=== PATIENT | male | born 1955 | race Asian ===

== ENCOUNTER 2018-04-11 11:38 | Emergency (ER) | payer OTHER ==
[2018-04-11] MEDS: ACETAMINOPHEN 500 MG TAB PO (13:16)
[2018-04-11 13:29] LABS: ABNORMAL IP MESSAGE 1; HEMATOCRIT 37.9 % (42.0-52.0); HEMOGLOBIN 12.5 g/dl (14.0-18.0); MEAN CORPUSCULAR HEMOGLOBIN 29.4 pg (29.0-33.0); MEAN CORPUSCULAR VOLUME 89.2 fl (82.0-101.0); MEAN PLATELET VOLUME 8.9 fl (7.4-10.4); PLATELET COUNT 318 10^3/UL (140-415); POSITIVE DIFF @See below; RED BLOOD COUNT 4.25 10^6/ul (4.70-6.10); RED CELL DISTRIBUTION WIDTH 13.3 % (11.5-14.5)
[2018-04-11 13:29] LABS: WHITE BLOOD COUNT 1.5 10^3/ul (4.8-10.8)
[2018-04-11 13:33] LABS: ADD UMIC NO; UR ASCORBIC ACID NEGATIVE (NEGATIVE); UR BILIRUBIN (Dip) NEGATIVE (NEGATIVE); UR BLOOD (Dip) NEGATIVE (NEGATIVE); UR CLARITY CLEAR (CLEAR); UR COLOR YELLOW (YELLOW); UR GLUCOSE (Dip) NEGATIVE (NEGATIVE); UR KETONES (Dip) NEGATIVE (NEGATIVE); UR LEUKOCYTE ESTERASE (Dip) NEGATIVE Leu/ul (NEGATIVE); UR NITRITE (Dip) NEGATIVE (NEGATIVE); UR SPECIFIC GRAVITY (Dip) 1.021 (1.003-1.030); UR TOTAL PROTEIN (Dip) NEGATIVE (NEGATIVE); UR UROBILINOGEN (Dip) NEGATIVE (NEGATIVE)
[2018-04-11 13:36] LABS: ADD MAN DIFF? YES
[2018-04-11 13:54] LABS: ALANINE AMINOTRANSFERASE 32 IU/L (13-69); ALBUMIN 5.1 g/dl (3.3-4.9); ALBUMIN/GLOBULIN RATIO 1.37; ALKALINE PHOSPHATASE 61 IU/L (42-121); ANION GAP 15 (8-16); ASPARTATE AMINO TRANSFERASE 20 IU/L (15-46); BILIRUBIN,INDIRECT 0.5 mg/dl (0-1.1); BILIRUBIN,TOTAL 0.5 mg/dl (0.2-1.3); BLOOD UREA NITROGEN 15 mg/dl (7-20); CALCIUM 9.6 mg/dl (8.4-10.2); CARBON DIOXIDE 24 mmol/L (21-31); CHLORIDE 106 mmol/L (97-110); CREATININE 0.75 mg/dl (0.61-1.24); GLUCOSE 112 mg/dl (70-220); SODIUM 141 mmol/L (135-144); TOTAL PROTEIN 8.8 g/dl (6.1-8.1)
[2018-04-11 14:11] LABS: ANISOCYTOSIS 1+ (0-0); BAND NEUTROPHILS % (M) 4 % (0-4); BASOPHILS % (M) 2 % (0-2); BURR CELLS 1+ (0-0); EOSINOPHILS % (M) 2 % (0-7); LYMPHOCYTES % (M) 67 % (15-51); METAMYELOCYTES %M 1 % (0-0); MONOCYTE #M 0.3 10^3/ul (0.3-0.9); MONOCYTES % (M) 21 % (0-11); OVALOCYTES 1+ (0-0); PLATELET ESTIMATE NORMAL; POIKILOCYTOSIS 1+ (0-0); POLYCHROMASIA 1+ (0-0); SEGMENTED NEUTROPHILS (M) % 3 % (39-77); SMUDGE%M 3 % (0-0)
== END 2018-04-11 14:43 | disposition home or self-care (01) ==
LOC: FTE 11:38
DX: L73.9 Follicular disorder, unspecified (principal); L08.9 Local infection of the skin and subcutaneous tissue, unspecified; I10 Essential (primary) hypertension; Z85.46 Personal history of malignant neoplasm of prostate
CPT/HCPCS: 36415; 76870; 80053; 81003; 85025; 87086; 87591; 99284-25

== ENCOUNTER 2018-05-17 20:53 | Emergency (ER) | payer OTHER ==
[2018-05-17] MEDS: LIDOCAINE 2% 20 ML UROJET SYRINGE MM (21:37)
[2018-05-17 22:12] LABS: ADD UMIC YES; UR ASCORBIC ACID NEGATIVE (NEGATIVE); UR BILIRUBIN (Dip) NEGATIVE (NEGATIVE); UR BLOOD (Dip) 1+ mg/dL (NEGATIVE); UR CLARITY CLEAR (CLEAR); UR COLOR STRAW (YELLOW); UR GLUCOSE (Dip) NEGATIVE (NEGATIVE); UR KETONES (Dip) NEGATIVE (NEGATIVE); UR LEUKOCYTE ESTERASE (Dip) NEGATIVE Leu/ul (NEGATIVE); UR NITRITE (Dip) NEGATIVE (NEGATIVE); UR RBC 0 /HPF (0-5); UR SPECIFIC GRAVITY (Dip) 1.006 (1.003-1.030); UR TOTAL PROTEIN (Dip) NEGATIVE (NEGATIVE); UR UROBILINOGEN (Dip) NEGATIVE (NEGATIVE); UR WBC 2 /HPF (0-5)
== END 2018-05-17 23:25 | disposition home or self-care (01) ==
LOC: E/R 20:53
DX: R33.9 Retention of urine, unspecified (principal); I10 Essential (primary) hypertension; C61 Malignant neoplasm of prostate
CPT/HCPCS: 51702; 81001; 87086; 99283-25

== ENCOUNTER 2018-05-24 14:22 | Emergency (ER) | payer SELFPAY, OTHER | END 2018-05-24 14:43 | disposition left against medical advice (07) | LOC: E/R 14:43 | DX: Z53.21 Procedure and treatment not carried out due to patient leaving prior to being seen by health care provider (principal) ==

== ENCOUNTER 2018-05-25 14:18 | Emergency (ER) | payer OTHER | END 2018-05-25 16:18 | disposition home or self-care (01) | LOC: FTE 14:18 | DX: Z46.6 Encounter for fitting and adjustment of urinary device (principal); Z85.46 Personal history of malignant neoplasm of prostate | CPT/HCPCS: 99282; Z7502 ==

== ENCOUNTER 2018-06-16 12:45 | Emergency (ER) | payer OTHER ==
[2018-06-16 14:03] LABS: ADD UMIC YES; UR ASCORBIC ACID NEGATIVE (NEGATIVE); UR BACTERIA MANY /HPF (NONE SEEN); UR BILIRUBIN (Dip) NEGATIVE (NEGATIVE); UR BLOOD (Dip) 3+ mg/dL (NEGATIVE); UR CLARITY TURBID (CLEAR); UR COLOR YELLOW (YELLOW); UR GLUCOSE (Dip) NEGATIVE (NEGATIVE); UR KETONES (Dip) NEGATIVE (NEGATIVE); UR LEUKOCYTE ESTERASE (Dip) 2+ Leu/ul (NEGATIVE); UR MUCUS MANY /HPF (NONE SEEN); UR NITRITE (Dip) POSITIVE (NEGATIVE); UR RBC > 182 /HPF (0-5); UR SPECIFIC GRAVITY (Dip) 1.018 (1.003-1.030); UR TOTAL PROTEIN (Dip) 2+ mg/dl (NEGATIVE); UR UROBILINOGEN (Dip) NEGATIVE (NEGATIVE); UR WBC > 182 /HPF (0-5)
[2018-06-16] MEDS: LIDOCAINE 1% (MDV) 10 ML INJ INJ (14:13)
[2018-06-16] MEDS: LIDOCAINE 1% (MPF) 5 ML VIAL INJ (15:29)
[2018-06-16] MEDS: CEFTRIAXONE 1 GM INJ IM (15:29)
== END 2018-06-16 15:52 | disposition home or self-care (01) ==
LOC: FTE 12:45
DX: T83.518A Infection and inflammatory reaction due to other urinary catheter, initial encounter (principal); N39.0 Urinary tract infection, site not specified; I10 Essential (primary) hypertension; Y73.2 Prosthetic and other implants, materials and accessory gastroenterology and urology devices associated with adverse incidents; Z46.6 Encounter for fitting and adjustment of urinary device; Z85.46 Personal history of malignant neoplasm of prostate
CPT/HCPCS: 51702; 81001; 87086; 96372; 99284-25

== ENCOUNTER 2018-06-22 21:00 | Emergency (ER) | payer OTHER | END 2018-06-22 23:36 | disposition home or self-care (01) | LOC: E/R 23:36 | DX: R33.9 Retention of urine, unspecified (principal); I10 Essential (primary) hypertension; R40.2142 Coma scale, eyes open, spontaneous, at arrival to emergency department; R40.2362 Coma scale, best motor response, obeys commands, at arrival to emergency department; R40.2252 Coma scale, best verbal response, oriented, at arrival to emergency department; Z85.46 Personal history of malignant neoplasm of prostate | CPT/HCPCS: 51702; 99283-25 ==

== ENCOUNTER 2018-07-01 13:53 | Emergency (ER) | payer OTHER | END 2018-07-01 17:06 | disposition home or self-care (01) | LOC: FTE 13:53 | DX: T83.038A Leakage of other urinary catheter, initial encounter (principal); I10 Essential (primary) hypertension; Y73.2 Prosthetic and other implants, materials and accessory gastroenterology and urology devices associated with adverse incidents; Z85.46 Personal history of malignant neoplasm of prostate; Z87.891 Personal history of nicotine dependence | CPT/HCPCS: 51702; 99283-25 ==

== ENCOUNTER 2018-07-17 13:10 | Emergency (ER) | payer OTHER ==
[2018-07-17 14:57] LABS: ADD UMIC YES; UR ASCORBIC ACID NEGATIVE (NEGATIVE); UR BILIRUBIN (Dip) NEGATIVE (NEGATIVE); UR BLOOD (Dip) 2+ mg/dL (NEGATIVE); UR CLARITY CLEAR (CLEAR); UR COLOR YELLOW (YELLOW); UR GLUCOSE (Dip) NEGATIVE (NEGATIVE); UR KETONES (Dip) NEGATIVE (NEGATIVE); UR LEUKOCYTE ESTERASE (Dip) TRACE Leu/ul (NEGATIVE); UR MUCUS FEW /HPF (NONE SEEN); UR NITRITE (Dip) POSITIVE (NEGATIVE); UR RBC 31 /HPF (0-5); UR TOTAL PROTEIN (Dip) 2+ mg/dl (NEGATIVE); UR UROBILINOGEN (Dip) NEGATIVE (NEGATIVE); UR WBC 11 /HPF (0-5)
== END 2018-07-17 16:59 | disposition home or self-care (01) ==
LOC: E/R 13:10
DX: T83.9XXA Unspecified complication of genitourinary prosthetic device, implant and graft, initial encounter (principal); N30.01 Acute cystitis with hematuria; I10 Essential (primary) hypertension; F17.210 Nicotine dependence, cigarettes, uncomplicated; Y73.2 Prosthetic and other implants, materials and accessory gastroenterology and urology devices associated with adverse incidents; Z85.46 Personal history of malignant neoplasm of prostate
CPT/HCPCS: 51702; 81001; 99283-25

== ENCOUNTER 2018-09-02 09:47 | Day surgery (SDC) | payer OTHER ==
[~2018-09-02 09:47] MED LIST: SEVOFLURANE 15 MIN
[2018-09-02] MEDS ORDERED: CEFTRIAXONE 1 GM/NS 50 ML IVPB (10:00)
[2018-09-02] MEDS ORDERED: GLYCOPYRROLATE 0.4 MG INJ (12:28)
[2018-09-02] MEDS ORDERED: PROPOFOL 20 ML (12:28)
[2018-09-02] MEDS ORDERED: SUCCINYLCHOLINE CHLORIDE 100 MG/5 ML SYG IV (12:28)
[2018-09-02] MEDS ORDERED: MEPERIDINE 100 MG INJ (12:28)
[2018-09-02] MEDS ORDERED: ROCURONIUM 50 MG INJ (12:28)
[2018-09-02] MEDS ORDERED: LIDOCAINE 2% (SDV) 5 ML INJ (12:28)
[2018-09-02] MEDS ORDERED: NEOSTIGMINE 3 MG/3 ML SYRINGE (12:28)
[2018-09-02 13:21] LABS: ADD UMIC YES; UR ASCORBIC ACID NEGATIVE (NEGATIVE); UR BACTERIA MODERATE /HPF (NONE SEEN); UR BILIRUBIN (Dip) NEGATIVE (NEGATIVE); UR BLOOD (Dip) NEGATIVE (NEGATIVE); UR BUDDING YEAST MANY /HPF (NONE SEEN); UR CLARITY SLIGHTLY CLOUDY (CLEAR); UR COLOR YELLOW (YELLOW); UR GLUCOSE (Dip) NEGATIVE (NEGATIVE); UR KETONES (Dip) NEGATIVE (NEGATIVE); UR LEUKOCYTE ESTERASE (Dip) TRACE Leu/ul (NEGATIVE); UR MUCUS FEW /HPF (NONE SEEN); UR NITRITE (Dip) NEGATIVE (NEGATIVE); UR RBC 10 /HPF (0-5); UR SPECIFIC GRAVITY (Dip) 1.016 (1.003-1.030); UR TOTAL PROTEIN (Dip) NEGATIVE (NEGATIVE); UR UROBILINOGEN (Dip) NEGATIVE (NEGATIVE); UR WBC 6 /HPF (0-5)
[2018-09-02] MEDS ORDERED: HYDROCODONE/APAP (5/325) TAB PO (14:30)
[2018-09-02] MEDS: HYDROmorphONE 1 MG/5 ML IV SYRINGE IV ×4 (14:48→16:33)
[2018-09-02] MEDS ORDERED: OXYCODONE/ACETAMINOPHEN (5/325) TAB PO ×2 (15:00)
[2018-09-02] MEDS ORDERED: HYDROmorphONE 1 MG/5 ML IV SYRINGE IV ×2 (15:00)
[2018-09-02] MEDS ORDERED: MIDAZOLAM 1 MG/ML 2 ML INJ IV (15:00)
[2018-09-02] MEDS ORDERED: DIPHENHYDRAMINE 50 MG INJ IV (15:00)
[2018-09-02] MEDS ORDERED: EPHEDrine SULFATE 50 MG/5 ML SYG IV (15:00)
[2018-09-02] MEDS ORDERED: METOCLOPRAMIDE 10 MG INJ IV (15:00)
[2018-09-02] MEDS ORDERED: LABETALOL HCL 20MG INJ IV (15:00)
[2018-09-02] MEDS ORDERED: MEPERIDINE 25 MG INJ IV (15:00)
[2018-09-02] MEDS ORDERED: ONDANSETRON 4 MG INJ IV (15:00)
[2018-09-02] MEDS ORDERED: FENTAnyl 50 MCG/ML VIAL IV ×3 (15:00)
[2018-09-02] MEDS ORDERED: hydrALAzine 20 MG INJ IV (15:00)
[2018-09-02] MEDS: DOCUSATE SODIUM 100 MG CAP PO ×2 (17:55→21:47)
[2018-09-02] MEDS: FERROUS SULFATE (EC) 325 MG TAB PO ×2 (17:56→21:47)
[2018-09-02] MEDS: ONDANSETRON 4 MG INJ IV (18:33)
[2018-09-02] MEDS: DEXTROSE 5%-0.45% NACL 1,000 ML IV (18:33)
[2018-09-02] MEDS ORDERED: PATIENT'S OWN MEDICATION PO (19:00)
[2018-09-02] MEDS: [UNRECOGNIZED DRUG - OTHER] XX (19:30)
[2018-09-03] MEDS: [UNRECOGNIZED DRUG - OTHER] XX (03:30)
[2018-09-03 05:30] LABS: ADD MAN DIFF? NO
[2018-09-03 05:39] LABS: BASOPHILS % 0.6 % (0.0-2.0); EOSINOPHILS # 0.2 10^3/ul (0.0-0.5); EOSINOPHILS % 2.5 % (0.0-7.0); HEMATOCRIT 37.6 % (42.0-52.0); HEMOGLOBIN 12.4 g/dl (14.0-18.0); LYMPHOCYTES # 1.7 10^3/ul (0.8-2.9); LYMPHOCYTES % 26.8 % (15.0-51.0); MEAN CORPUSCULAR HEMOGLOBIN 28.6 pg (29.0-33.0); MEAN CORPUSCULAR VOLUME 86.8 fl (82.0-101.0); MEAN PLATELET VOLUME 9.5 fl (7.4-10.4); MONOCYTE # 0.6 10^3/ul (0.3-0.9); MONOCYTES % 9.9 % (0.0-11.0); NEUTROPHIL # 3.8 10^3/ul (1.6-7.5); NEUTROPHILS % 59.9 % (39.0-77.0); PLATELET COUNT 358 10^3/UL (140-415); RED BLOOD COUNT 4.33 10^6/ul (4.70-6.10)
[2018-09-03 05:39] LABS: WHITE BLOOD COUNT 6.3 10^3/ul (4.8-10.8)
[2018-09-03] MEDS: FERROUS SULFATE (EC) 325 MG TAB PO (09:22)
[2018-09-03] MEDS: DOCUSATE SODIUM 100 MG CAP PO (09:22)
[2018-09-03] MEDS: CEFTRIAXONE 1 GM/50 ML (PMX) 50 ML IVPB (12:26)
[2018-09-03 15:02] LABS: ANION GAP 14 (5-13); BLOOD UREA NITROGEN 11 mg/dl (7-20); CALCIUM 9.5 mg/dl (8.4-10.2); CARBON DIOXIDE 26 mmol/L (21-31); CHLORIDE 102 mmol/L (97-110); Estimated GFR > 60 mL/min (>60); GLUCOSE 106 mg/dl (70-220); POTASSIUM 3.8 mmol/L (3.5-5.1); SODIUM 142 mmol/L (135-144)
[2018-09-03] MEDS: MAGNESIUM HYDROXIDE 30ML CUP PO (16:46)
[2018-09-03] MEDS ORDERED: XTANDI 40 MG PO (19:00)
== END 2018-09-03 20:00 | disposition home or self-care (01) ==
LOC: SDS 09:47 → REC 17:40 → SDS 09:47 → REC 14:20 → MS1 15:46 → SDS 09-03 20:00
DX: C61 Malignant neoplasm of prostate (principal); R33.9 Retention of urine, unspecified; Z87.891 Personal history of nicotine dependence
CPT/HCPCS: 52601; 80048; 81001; 85025; 88305

== ENCOUNTER 2018-12-20 15:02 | Emergency (ER) | payer OTHER ==
[2018-12-20] MEDS: OXYCODONE/ACETAMINOPHEN (5/325) TAB PO (17:33)
[2018-12-20] MEDS: KETOROLAC 60 MG INJ IM (17:33)
== END 2018-12-20 19:49 | disposition home or self-care (01) ==
LOC: FTE 19:49
DX: M25.552 Pain in left hip (principal); M25.562 Pain in left knee; Z85.46 Personal history of malignant neoplasm of prostate
CPT/HCPCS: 73510; 73562; 96372; 99284-25

== ENCOUNTER 2019-03-09 15:15 | Emergency (ER) | payer OTHER ==
[2019-03-09] MEDS: ONDANSETRON 4 MG INJ IV (15:48)
[2019-03-09] MEDS: morphine 4 MG/ML VIAL IV (15:48)
[2019-03-09] MEDS: SOD CHLORIDE 0.9% 1,000 ML IV (15:48)
[2019-03-09 15:54] LABS: ADD MAN DIFF? NO
[2019-03-09 15:57] LABS: BASOPHILS % 0.4 % (0.0-2.0); EOSINOPHILS # 0.3 10^3/ul (0.0-0.5); EOSINOPHILS % 4.3 % (0.0-7.0); HEMATOCRIT 32.2 % (42.0-52.0); HEMOGLOBIN 10.8 g/dl (14.0-18.0); LYMPHOCYTES # 1.2 10^3/ul (0.8-2.9); LYMPHOCYTES % 16.6 % (15.0-51.0); MEAN CORPUSCULAR HEMOGLOBIN 28.2 pg (29.0-33.0); MEAN CORPUSCULAR HGB CONC 33.5 g/dl (32.0-37.0); MEAN CORPUSCULAR VOLUME 84.1 fl (82.0-101.0); MONOCYTE # 0.9 10^3/ul (0.3-0.9); MONOCYTES % 12.3 % (0.0-11.0); NEUTROPHIL # 4.6 10^3/ul (1.6-7.5); NEUTROPHILS % 66.1 % (39.0-77.0); PLATELET COUNT 368 10^3/UL (140-415); RED BLOOD COUNT 3.83 10^6/ul (4.70-6.10); RED CELL DISTRIBUTION WIDTH 14.4 % (11.5-14.5)
[2019-03-09 16:17] LABS: ALANINE AMINOTRANSFERASE 11 IU/L (13-69); ALBUMIN 4.3 g/dl (3.3-4.9); ALBUMIN/GLOBULIN RATIO 1.34; ALKALINE PHOSPHATASE 92 IU/L (42-121); AMYLASE 113 U/L (11-123); ANION GAP 12 (5-13); ASPARTATE AMINO TRANSFERASE 16 IU/L (15-46); BILIRUBIN,INDIRECT 0.4 mg/dl (0-1.1); BILIRUBIN,TOTAL 0.4 mg/dl (0.2-1.3); BLOOD UREA NITROGEN 12 mg/dl (7-20); CALCIUM 9.8 mg/dl (8.4-10.2); CARBON DIOXIDE 27 mmol/L (21-31); CHLORIDE 105 mmol/L (97-110); CREATININE 0.68 mg/dl (0.61-1.24); Estimated GFR > 60 mL/min (>60); GLUCOSE 103 mg/dl (70-220); LIPASE 60 U/L (23-300); POTASSIUM 3.9 mmol/L (3.5-5.1); SODIUM 144 mmol/L (135-144); TOTAL PROTEIN 7.5 g/dl (6.1-8.1)
[2019-03-09 16:26] LABS: TROPONIN-I < 0.012 ng/ml (0.000-0.120)
[2019-03-09 16:29] LABS: INR 0.92; PROTIME 12.5 Sec (11.9-14.9)
[2019-03-09 16:30] LABS: PARTIAL THROMBOPLASTIN TIME 33.7 Sec (23.0-35.0)
[2019-03-09 16:33] LABS: ADD UMIC NO; UR ASCORBIC ACID NEGATIVE (NEGATIVE); UR BILIRUBIN (Dip) NEGATIVE (NEGATIVE); UR BLOOD (Dip) NEGATIVE (NEGATIVE); UR CLARITY CLEAR (CLEAR); UR COLOR YELLOW (YELLOW); UR GLUCOSE (Dip) NEGATIVE (NEGATIVE); UR KETONES (Dip) NEGATIVE (NEGATIVE); UR LEUKOCYTE ESTERASE (Dip) NEGATIVE Leu/ul (NEGATIVE); UR NITRITE (Dip) NEGATIVE (NEGATIVE); UR SPECIFIC GRAVITY (Dip) 1.015 (1.003-1.030); UR TOTAL PROTEIN (Dip) NEGATIVE (NEGATIVE); UR UROBILINOGEN (Dip) NEGATIVE (NEGATIVE)
[2019-03-09] MEDS: SOD CHLORIDE 0.9% 100 ML (17:10)
[2019-03-09] MEDS: IOHEXOL 300MG/ML 150 ML BTL (17:10)
== END 2019-03-09 18:56 | disposition home or self-care (01) ==
LOC: E/R 15:15
DX: K52.9 Noninfective gastroenteritis and colitis, unspecified (principal); Z85.46 Personal history of malignant neoplasm of prostate
CPT/HCPCS: 74177; 80053; 81003; 82150; 83690; 84484; 85025; 85610; 85730; 93005; 96374; 96375; 99285-25

== ENCOUNTER 2019-05-20 08:11 | Emergency (ER) | payer OTHER ==
[2019-05-20] MEDS: morphine 4 MG/ML VIAL IV (09:32)
[2019-05-20] MEDS: ONDANSETRON 4 MG INJ IV (09:32)
[2019-05-20] MEDS: ACETAMINOPHEN 500 MG TAB PO (09:32)
[2019-05-20] MEDS: KETOROLAC 15 MG INJ IV (09:32)
== END 2019-05-20 11:01 | disposition home or self-care (01) ==
LOC: E/R 08:11
DX: M25.511 Pain in right shoulder (principal); Z85.830 Personal history of malignant neoplasm of bone; Z92.21 Personal history of antineoplastic chemotherapy; Z85.46 Personal history of malignant neoplasm of prostate
CPT/HCPCS: 73000; 93971; 96374; 96375; 99285-25